=== PATIENT | female | born 1975 | race Caucasian/White ===

== ENCOUNTER 2016-12-21 17:02 | Emergency (ER) | payer OTHER ==
[~2016-12-21] VITALS: Ht 160 cm; Wt 103.4 kg
[~2016-12-21 17:02] MED LIST: ELIQUIS5 MG PO; MOTRIN800 MG PO; PERCOCET 5/31 TABLET PO; PROMETHAZINE HC25 M1 PO; RANITIDINE HCL150 M1 PO; ROBITUSSIN AC,T10 ML PO; XARELTO20 MG PO; ZITHROMAX Z-PA250 MG PO; ZOFRAN ODT8 MG PO
[2016-12-21 19:44] VITALS: BP 119/75
== END 2016-12-21 19:56 | disposition home or self-care (01) ==
LOC: EME 17:02
DX: S96.911A Strain of unspecified muscle and tendon at ankle and foot level, right foot, initial encounter (principal); X58.XXXA Exposure to other specified factors, initial encounter; G43.909 Migraine, unspecified, not intractable, without status migrainosus; G89.29 Other chronic pain; M54.9 Dorsalgia, unspecified; Z86.718 Personal history of other venous thrombosis and embolism; F17.200 Nicotine dependence, unspecified, uncomplicated
CPT/HCPCS: 93971; 99281; 99284

== ENCOUNTER → 2017-10-05 | Outpatient (CLI) | payer OTHER | END | disposition home or self-care (01) | LOC: CDC 10:56 | DX: M79.641 Pain in right hand (principal); G56.01 Carpal tunnel syndrome, right upper limb; M79.642 Pain in left hand; G56.02 Carpal tunnel syndrome, left upper limb; M54.2 Cervicalgia | CPT/HCPCS: 93000 ==

== ENCOUNTER 2018-01-14 06:13 | Emergency (ER) | payer OTHER ==
[~2018-01-14] VITALS: Ht 175.3 cm; Wt 109.5 kg
[2018-01-14 07:31] LABS: BASOPHIL (%) 0.5 % (0-1); BASOPHIL COUNT 0.1 K/uL (0-0.1); EOSINOPHIL (%) 1.2 % (0-5); EOSINOPHIL COUNT 0.1 K/uL (0-0.3); HEMATOCRIT 41.1 % (36.0-46.0); HEMOGLOBIN 13.8 G/DL (11.9-15.5); IMMATURE GRANULOCYTE (%) 0.2 % (0.0-0.7); LYMPHOCYTE COUNT 3.3 K/uL (1.0-2.8); MCH 31.7 PG (29.0-34.0); MCHC 33.6 G/DL (30.0-36.0); MCV 94.3 FL (83-99); MONOCYTE (%) 8.3 % (3-12); MONOCYTE COUNT 0.9 K/uL (0-0.8); NEUTROPHIL (%) 58.8 % (45-76); NEUTROPHIL COUNT 6.2 K/uL (1.8-6.4); PLATELET COUNT 139 K/uL (156-360); RBC DIS.WIDTH-CV 11.9 % (11.8-14.6); RBC DIS.WIDTH-SD 41.8 % (39-53); RED BLOOD COUNT 4.36 M/uL (3.80-5.20); WHITE BLOOD COUNT 10.6 K/uL (4.1-10.2)
[2018-01-14 07:39] LABS: PTT 34.7 SEC (25-37)
[2018-01-14 07:43] LABS: CHLORIDE 106 mEq/L (99-109); POTASSIUM 4.5 mEq/L (3.7-5.4); SODIUM 139 mEq/L (136-147)
[2018-01-14 07:45] LABS: GLUCOSE 112 mg/dL (70-99)
[2018-01-14 07:49] LABS: CREATININE 0.8 mg/dL (0.6-1.3); GFR ESTIMATE (CALCULATED) > 59 mL/min/
[2018-01-14 07:50] LABS: UREA NITROGEN (BUN) 16 mg/dL (9-23)
[2018-01-14 07:51] LABS: URIC ACID 5.5 mg/dL (3.1-9.2)
[2018-01-14 08:25] LABS: C-REACTIVE PROTEIN 5.8 MG/L (0-10); ERTH.SED.RATE 34 MM/HR (0-20)
[2018-01-14 10:51] VITALS: BP 121/70
== END 2018-01-14 11:05 | disposition home or self-care (01) ==
LOC: EME 06:13
PROVIDERS: Emergency Medicine
DX: M25.532 Pain in left wrist (principal); G89.18 Other acute postprocedural pain; G43.909 Migraine, unspecified, not intractable, without status migrainosus; F17.200 Nicotine dependence, unspecified, uncomplicated; Z79.01 Long term (current) use of anticoagulants; Z86.718 Personal history of other venous thrombosis and embolism; Z90.710 Acquired absence of both cervix and uterus; Z90.49 Acquired absence of other specified parts of digestive tract
CPT/HCPCS: 73110; 80048; 84550; 85025; 85610; 85651; 85730; 86140; 93971; 99281; 99284; J1885